=== PATIENT | female | born 1955 | race American Indian/Alaskan Native ===

== ENCOUNTER 2016-05-19 12:20 | Emergency (ER) | payer OTHER ==
[2016-05-19 12:31] VITALS: BP 127/73
--- NOTE | 2016-05-19 16:19 | Emergency Department Report ---
Chief Complaint: Skin Rash Stated Complaint: SKIN RASH - HPI History of Present Illness: 60-year-old -[place] female comes in for rash she's had for 30 days. Patient reports that the rash is itchy. She has been taking Benadryl but not much relief. She denies any change in detergents no new pets no new foods no new medication no antibiotics. She denies shortness of breathing no nausea no vomiting no chest pain or fever or chills. She is followed by Dr. Isidro Barajas which she reports would not see her because she "money. - Exam Vital Signs: Vital Signs 05/19/16 12:26 Temperature 98.4 F Pulse Rate 87 Respiratory 20 Rate Blood Pressure 127/73 O2 Sat by Pulse 99 Oximetry Physical Exam: Patient's alert and oriented 3. She is in no acute distress. Cardiovascular S1-S2 regular rate and rhythm respiratory clear to auscultation bilateral. Skin rash papular all of her face back just in the webs of her fingers and her toes. MSE screening note: Focused history and physical exam performed. Due to findings the following was ordered: Patient's been evaluated by this provider in fast track. Discussed with patient the follow-up the primary care provider that this does not justify a true emergency. Patient verbalized understanding ED Disposition for MSE Condition: Stable Referrals: PRIMARY CARE, [Primary Care Provider] - 3-5 Days
== END 2016-05-19 16:26 | disposition left against medical advice (07) ==
LOC: ED 12:20
DX: R21 Rash and other nonspecific skin eruption (principal); Z53.21 Procedure and treatment not carried out due to patient leaving prior to being seen by health care provider